=== PATIENT | male | born 1945 | race Caucasian/White ===

== ENCOUNTER 2017-04-23 10:58 | Day surgery (SDC) | payer MEDICARE ==
[2017-03-15 18:13] VITALS: BMI 26.6
[2017-04-23 11:31] LABS: BASO # 0.08 K/mm3 (0.0-2.0); BASO % 0.7 % (0.0-3.0); EOS # 0.5 (0.0-0.7); EOS % 4.6 % (1.5-5.0); GRAN # 8.69 (1.4-6.5); GRAN % 76.8 % (50.0-68.0); HEMOGLOBIN 8.7 g/dL (14.0-18.0); LYMPH # 1.3 (1.2-3.4); LYMPH % 11.5 % (22.0-35.0); MEAN CELL VOLUME 85.1 fl (80.0-105.0); MEAN CORPUSCULAR HEMOGLOBIN 26.4 pg (25.0-35.0); MEAN CORPUSCULAR HGB CONC 31.1 g/dl (31.0-37.0); MEAN PLATELET VOLUME 9.6 fl (7.0-11.0); MONO # 0.7 (0.1-0.6); MONO % 6.4 % (1.0-6.0); RBC 3.29 10^6/uL (3.5-6.1); RED CELL DISTRIBUTION WIDTH 14.4 % (11.5-14.5); WHITE BLOOD COUNT 11.3 10^3/ul (4.5-11.0)
[2017-04-23 11:42] LABS: BLOOD UREA NITROGEN 27 mg/dL (7-21); CALCIUM 10.1 mg/dL (8.4-10.5); GFR AFRICAN-AMERICAN > 60; GFR NON-AFRICAN AMERICAN 50
[2017-04-23 11:45] LABS: INR 1.2 (0.93-1.08); PARTIAL THROMBOPLASTIN TIME 34.6 Seconds (25.1-36.5); PROTHROMBIN TIME 13.9 SECONDS (9.4-12.5)
[2017-04-23] MEDS ORDERED: Midazolam 2 MG/2 ML VIAL ONE (13:01)
[2017-04-23] MEDS ORDERED: Lidocaine 1% Inj (20ml) ONE (13:25)
[2017-04-23] MEDS ORDERED: Oxycodone/Acetaminophen 5/325 mg Tab PO PRN (13:46)
[2017-04-23] MEDS ORDERED: Sodium Chloride 0.45% 1,000 ML IV SCH (14:00)
[2017-04-23 14:36] VITALS: RESP 18; TEMP 98.5; O2SAT 95
[2017-04-23 15:18] VITALS: BP 130/82; PULSE 75
--- NOTE | 2017-04-23 17:33 | CT ---
PROCEDURE: CT guided left periaortic lymph node biopsy. HISTORY: History non-Hodgkin's lymphoma. Recurrent retroperitoneal lymphadenopathy. Evaluate for malignancy. PHYSICIAN(S): Gilles Ford MD. TECHNIQUE: The relative risks and indications of the procedure were explained to the patient and consent obtained. The patient was placed prone on the CT scanner and preliminary images through the liver obtained. Conscious sedation and monitoring were provided throughout the procedure by a nurse. There are multiple retroperitoneal lymph nodes demonstrated. A 4 cm left periaortic lymph node was selected for biopsy. . A left posterior approach was selected and the area prepped and draped in the usual sterile fashion. 1% Xylocaine was used to anesthetize the skin and soft tissues. A 17-gauge guiding needle was advanced into the 4 cm left periaortic lymph node. Its position was confirmed with CT. Using coaxial technique, multiple core biopsies were obtained. The postprocedure images show no evidence of significant hemorrhage. IMPRESSION: 1. CT-guided left periaortic lymph node biopsy as described above. Specimens were sent for histology and flow cytometry
== END 2017-04-23 15:45 | disposition home or self-care (01) ==
LOC: SDS 10:58
PROVIDERS: ATTEND Radiology Vascular & Interventional Radiology
DX: C81.93 Hodgkin lymphoma, unspecified, intra-abdominal lymph nodes (principal); E11.9 Type 2 diabetes mellitus without complications; I10 Essential (primary) hypertension
CPT/HCPCS: 36415; 38505; 77012; 80048; 82948; 85025; 85610; 85730; 88305; 99152; J2250; J2405; J3010; J7030

== ENCOUNTER 2017-05-18 10:18 | Day surgery (SDC) | payer MEDICARE ==
[2017-03-15 18:13] VITALS: BMI 26.6
[2017-05-18 10:45] LABS: BASO # 0.08 K/mm3 (0.0-2.0); BASO % 0.5 % (0.0-3.0); EOS # 0.4 (0.0-0.7); EOS % 2.7 % (1.5-5.0); GRAN # 12.45 (1.4-6.5); GRAN % 83.2 % (50.0-68.0); HEMOGLOBIN 10.3 g/dL (14.0-18.0); LYMPH # 1.2 (1.2-3.4); LYMPH % 8.1 % (22.0-35.0); MEAN CELL VOLUME 84.2 fl (80.0-105.0); MEAN CORPUSCULAR HEMOGLOBIN 26.2 pg (25.0-35.0); MEAN CORPUSCULAR HGB CONC 31.1 g/dl (31.0-37.0); MEAN PLATELET VOLUME 10.1 fl (7.0-11.0); MONO # 0.8 (0.1-0.6); MONO % 5.5 % (1.0-6.0); RBC 3.93 10^6/uL (3.5-6.1); RED CELL DISTRIBUTION WIDTH 14.8 % (11.5-14.5)
[2017-05-18 10:54] LABS: INR 1.22 (0.93-1.08); PARTIAL THROMBOPLASTIN TIME 33.6 Seconds (25.1-36.5); PROTHROMBIN TIME 14.1 SECONDS (9.4-12.5)
[2017-05-18 10:55] LABS: BLOOD UREA NITROGEN 26 mg/dL (7-21); CALCIUM 10.6 mg/dL (8.4-10.5); GFR AFRICAN-AMERICAN > 60; GFR NON-AFRICAN AMERICAN 55
[2017-05-18] MEDS ORDERED: Lidocaine 2% Inj (20ml) ONE (11:55)
[2017-05-18] MEDS ORDERED: HEPARIN SODIUM/NS 1,000 ML IV ONE (11:56)
[2017-05-18] MEDS ORDERED: Midazolam 2 MG/2 ML VIAL ONE ×2 (12:31→12:55)
[2017-05-18] MEDS ORDERED: Oxycodone/Acetaminophen 5/325 mg Tab PO PRN (13:32)
[2017-05-18] MEDS ORDERED: Oxycodone/Acetaminophen 5/325 mg Tab ONE (13:41)
[2017-05-18] MEDS ORDERED: Sodium Chloride 0.45% 1,000 ML IV SCH (13:45)
[2017-05-18 14:25] VITALS: RESP 18; TEMP 97.9
[2017-05-18 14:47] VITALS: BP 145/89; PULSE 87; O2SAT 95
--- NOTE | 2017-05-18 17:57 | VASCULAR ---
PROCEDURE: Ultrasound and fluoroscopic right internal jugular venous access port. CLINICAL HISTORY: Lymphoma.Venous port for chemotherapy. PHYSICIAN(S): Gilles Ford M.D. TECHNIQUE: The relative risks and indications of the procedure were explained to the patient and consent obtained. The patient was placed supine on the arteriogram table and the right neck and chest prepped and draped in the usual sterile fashion. Conscious sedation monitoring was provided throughout the procedure by a nurse. Antibiotics were given prior to the procedure. Under direct ultrasound guidance, the right internal jugular vein was punctured with a micro-puncture set. A 0.035 angled Glidewire was advanced into the IVC. A 4 cm incision was made at just below the right clavicle and the pocket blunted dissected. A 8 [place] single-lumen catheter, 23 cm long, was advanced to the SVC/RA junction. The catheter was trimmed and attached to the port. The port aspirates and injects easily. The port was placed in the pocket and closed in 2 layers. The patient tolerated the procedure well. IMPRESSION: Ultrasound and fluoroscopically placed right internal jugular venous access port.
== END 2017-05-18 15:10 | disposition home or self-care (01) ==
LOC: SDSVAS 10:18
PROVIDERS: ATTEND Radiology Vascular & Interventional Radiology
DX: Z45.2 Encounter for adjustment and management of vascular access device (principal); C85.90 Non-Hodgkin lymphoma, unspecified, unspecified site; I10 Essential (primary) hypertension; Z87.891 Personal history of nicotine dependence
CPT/HCPCS: 36415; 36561; 76937; 77001; 80048; 85025; 85610; 85730; 99152; C1769; C1788; J0690; J1644; J2250; J2405; J3010; J7030